=== PATIENT | female | born 1975 | race Caucasian/White ===

== ENCOUNTER 2016-10-22 06:28 | Day surgery (SDC) | payer BC, OTHER ==
[~2016-10-22] VITALS: Ht 167.6 cm; Wt 58.8 kg
[2016-10-22] MEDS ORDERED: LACTATED RINGERS 1,000 ML IV SCH (07:13)
[2016-10-22] MEDS ORDERED: FENTANYL PF 100 MCG/2ML ONE ×3 (07:13→09:32)
[2016-10-22] MEDS ORDERED: MIDAZOLAM 1 MG/ML, 2ML ONE (07:14)
[2016-10-22] MEDS ORDERED: no meds per pt (07:15)
[2016-10-22] MEDS ORDERED: SILVER NITRATE STICK TP ONE (07:24)
[2016-10-22 07:30] VITALS: BP 117/79
[2016-10-22 07:43] LABS: PATH.CAST-FLAG NOT PRESENT; SPERM-FLAG NOT PRESENT; SRC-FLAG NOT PRESENT; XTAL-FLAG NOT PRESENT; YLC-FLAG NOT PRESENT
[2016-10-22 07:46] LABS: HEMOGLOBIN 13.5 g/dL (11.7-16.4)
[2016-10-22] MEDS ORDERED: ONDANSETRON 2MG/ML, 2ML ONE ×4 (07:47→11:02)
[2016-10-22] MEDS ORDERED: PROPOFOL 10 MG/ML, 20ML ONE (07:47)
[2016-10-22] MEDS ORDERED: DEXAMETHASONE 4 MG/ML, 5ML ONE (07:47)
[2016-10-22] MEDS ORDERED: KETOROLAC 30 MG/1 ML ONE (07:47)
[2016-10-22] MEDS ORDERED: HYDROmorphone 1 MG/ML, 1ML IV PRN (08:00)
[2016-10-22] MEDS ORDERED: OXYcodone 5 MG/5 ML ORAL.SOL UDC PO PRN (08:00)
[2016-10-22] MEDS ORDERED: METOCLOPRAMIDE 5 MG/ML, 2ML IV PRN (08:00)
[2016-10-22] MEDS ORDERED: ACETAMINOPHEN 325 MG TABLET PO PRN (08:00)
[2016-10-22] MEDS ORDERED: PLEASE ENTER HEIGHT AND WEIGHT MC SCH (08:00)
[2016-10-22] MEDS ORDERED: FENTANYL PF 100 MCG/2ML IV PRN (08:00)
[2016-10-22] MEDS ORDERED: PROMETHAZINE 25 MG/ML, 1ML IV PRN (08:00)
[2016-10-22] MEDS ORDERED: ONDANSETRON 2MG/ML, 2ML IVPush PRN (08:00)
[2016-10-22] MEDS ORDERED: LIDOCAINE 1%-EPI 1:100K, 50ML ONE (08:09)
[2016-10-22] MEDS ORDERED: OXYTOCIN 10 UNITS/ML, 1ML ONE (08:16)
[2016-10-22] MEDS ORDERED: METHYLERGONOVINE 0.2 MG/ML IM ONE (08:16)
[2016-10-22] MEDS ORDERED: MISOPROSTOL 200 MCG TABLET ONE (08:16)
[2016-10-22] MEDS ORDERED: LIDOCAINE 1%-EPI 1:100K, 30ML INFIL ONE (08:23)
[2016-10-22] MEDS ORDERED: ONDANSETRON ODT 4 MG JT PRN (11:00)
== END 2016-10-22 11:55 | disposition home or self-care (01) ==
LOC: OUT 06:28
PROVIDERS: ATTEND Obstetrics & Gynecology Maternal & Fetal Medicine
DX: O03.4 Incomplete spontaneous abortion without complication (principal)
CPT/HCPCS: 36415; 58558; 81001; 85025; 86900; 88304; 88305; J1100; J1885; J2250; J2405; J2704; J3010; J7120; Q0162; J3490; J2210; J2590